=== PATIENT | female | born 2000 | race Caucasian/White ===

== ENCOUNTER 2022-07-28 11:27 | Emergency (ER) | payer OTHER, SELFPAY ==
--- NOTE | ~2022-07-28 | US_ITS ---
EXAMINATION: US pelvic complete w TV DATE: 07/28/2022 15:17 INDICATION: Ovarian cyst. Pelvic pain. TECHNIQUE: Multiple transabdominal and transvaginal sonographic images of the pelvis were obtained. COMPARISON: None. FINDINGS: TRANSABDOMINAL ULTRASOUND: The uterus measures 6.7 x 3.8 x 4.2 cm. There is physiologic free fluid in the pelvis. TRANSVAGINAL ULTRASOUND: The endometrial complex measures 1 mm in thickness. The right ovary measures 3.8 x 2.8 x 2.6 cm. The left ovary measures 4.1 x 3.1 x 4.1 cm. There is normal vascular flow in the ovaries. In the left adn exa, there is a 7.0 cm cyst with peripheral echogenic material without internal vascular flow. IMPRESSION: 1. 7.0 cm cyst with peripheral echogenic material without internal vascular flow in left adnexa. This finding may be a neoplasm or hemorrhagic cyst. Consider surgical evaluation or pelvis MRI without an d with contrast. Reviewed, dictated and finalized at location A. [employer] IMPRESSION: 1. 7.0 cm cyst with peripheral echogenic material without internal vascular kaitlin w in left adnexa. This finding may be a neoplasm or hemorrhagic cyst. Consider surgical evaluation or pelvis MRI without and with contrast.
[2022-07-28 12:19] VITALS: BP 144/118; PULSE 109; RESP 18; TEMP 36.8; O2SAT 100
[2022-07-28 12:42] LABS: Basophils Absolute Auto 0.1 K/mm3 (0.0-0.1); Basophils Percent Auto 0.4 % (0.2-1.2); Eosinophils Absolute Auto 0.2 K/mm3 (0-0.3); Eosinophils Percent Auto 1.4 % (0-4.4); Hemoglobin 12.8 g/dL (12.0-15.0); Immature Granulocyte Absolute 0.08 K/mm3 (0.00-0.031); Immature Granulocyte Percent A 0.6 % (0-0.5); Lymphocytes Absolute Auto 2.18 K/mm3 (0.9-3.2); Lymphocytes Percent Auto 17.1 % (18.3-44.2); Mean Corpuscular HGB Conc 31.2 g/dl (32-36); Mean Corpuscular Hemoglobin 26.4 pg (26-34); Mean Corpuscular Volume 84.5 fl (80-100); Mean Platelet Volume 8.9 fl (7.4-10.4); Monocytes Absolute Auto 0.7 K/mm3 (0.1-0.6); Monocytes Percent Auto 5.1 % (2.6-8.5); Neutrophils Absolute Auto 9.6 K/mm3 (1.3-6.7); Neutrophils Percent Auto 75.4 % (45.5-73.1); Platelet Count Result 319 k/mm3 (150-375); Red Blood Count 4.85 M/mm3 (4.2-5.4); Red Cell Distribution Width 13.8 % (11.5-14.5); White Blood Count 12.8 K/mm3 (4.5-10.0)
[2022-07-28 12:50] LABS: Alanine Aminotransferase 32 U/L (6-35); Albumin Level 4.1 g/dL (3.7-5.6); Alkaline Phosphatase 131 U/L (45-116); Anion Gap 4 mmol/L (8-16); Aspartate Amino Transferase 22 U/L (14-36); Bilirubin,Total 0.6 mg/dL (0.2-1.3); Blood Urea Nitrogen 16 mg/dL (8-21); Calcium 9.1 mg/dL (8.9-10.7); Carbon Dioxide 29 mmol/L (22-30); Chloride 101 mmol/L (98-107); Estimated CRCL calculation 161 ml/min; Estimated Glomerular Filt Rate > 60; Glucose 89 mg/dL (65-110); Lipase 57 U/L (23-300); Potassium 3.9 mmol/L (3.4-5.0); Sodium 134 mmol/L (134-143)
[2022-07-28 12:56] LABS: Appearance Urine Slightly Cloudy (Clear); Bilirubin Urine 1+ (Negative); Blood Urine Negative (Negative); Color Urine Yellow (Yellow); Glucose Urine UA Negative (Negative); Ketones Urine Trace mg/dL (Negative); Leukocyte Esterase Ur Trace LEU/UL (Negative); Nitrate Urine Negative (Negative); Protein Urine Negative (Negative); Specific Grav Ur >= 1.030 (1.001-1.035); Urobilinogen Urine 0.2 mg/dL (<2.0)
[2022-07-28 12:59] LABS: Add Urine Microscopic? YES; Bacteria Urine Trace /hpf; Mucus Urine Rare /lpf; Squamous Epithelial Cell Urine Many /hpf (Few); WBC Urine 16-20 /hpf
[2022-07-28 13:33] VITALS: BP 145/96; PULSE 92; RESP 18; O2SAT 98
--- NOTE | 2022-07-28 14:52 | ED.ABDPAIN ---
HPI - Abdominal Pain General Chief Complaint: Abdominal Pain Stated Complaint: ovarian cyst Time Seen by Provider: 07/28/22 13:50 Source: patient Mode of arrival: ambulatory Limitations: no limitations History of Present Illness HPI narrative: This is a 21-year-old female that presents to the emergency department for left-sided pelvic pain. Ongoing over the last 5 days. Reports the pain is sharp and constant. She has been taking anti-inflammatories for pain. Reports she was evaluated at [facility] emergency department and had an ultrasound of her pelvis. Reports having a 6 cm left ovarian cyst. She followed up with a provider today as her pain was worsening who prompted her to be seen in ER again. Reports some associated nausea and vomiting. Also reports dysuria. Denies fever, vaginal bleeding, or hematuria. Related Data Home Medications Medication Instructions Recorded Confirmed fluoxetine 40 mg capsule (Prozac) 40 mg PO DAILY 05/02/19 05/02/19 Allergies Allergy/AdvReac Type Severity Reaction Status Date / Time No Known Allergies Allergy Verified 07/28/22 13:30 Review of Systems Review of Systems: CONSTITUTIONAL: Denies fever GASTROINTESTINAL: Reports abdominal/pelvic pain, nausea, vomiting GENITOURINARY: Reports dysuria. Denies hematuria. SKIN: Denies rash All systems reviewed & are unremarkable except as noted in HPI and below PMFSH Past Medical History Medical History (Updated 07/28/22 @ 16:41 by Hillary Esquivel PA-C) No active medical problems Social History Social History (Updated 05/02/19 @ 18:43 by Yuliet Jolly, COMPENSATION SPECIALIST) Smoking status: Never smoker Alcohol intake: never Substance use: never Living arrangements: with family Gender identity (if verbalized by the patient): Female Exam Narrative: GENERAL: Well-appearing, well-nourished, and in no acute distress. HEAD: Normocephalic, atraumatic. EYES: EOMI. CHEST: Clear to auscultation. No respiratory distress. No wheezes rales or rhonchi HEART: Regular rate and rhythm. No murmur heard. Normal peripheral pulses. ABDOMEN: Soft, nondistended, normal active bowel sounds. Tender to palpation in the left lower abdomen, without guarding. No CVA tenderness EXTREMITIES: Normal range of motion. No edema. SKIN: Warm, dry, no rash. NEURO: No focal deficits. Alert and oriented x3. PSYCH: Normal mood and affect PELVIC: Normal external genitalia. Normal appearing cervix. No abnormal discharge noted Course Course Emergency Course: Patient updated on work-up and agrees with plan of care. Consultations Consultation #1: Spoke with Dr. Greenberg about patient and workup who will follow up with patient in clinic for further management Date: 07/28/22 Vital Signs Vital signs: Vital Signs Temperature 98.2 F 07/28/22 12:19 Pulse Rate 109 H 07/28/22 12:19 Respiratory Rate 18 07/28/22 12:19 Blood Pressure 144/118 H 07/28/22 12:19 Pulse Oximetry 100 07/28/22 12:19 Temperature 98.2 F 07/28/22 12:19 Pulse Rate 92 07/28/22 13:33 Respiratory Rate 18 07/28/22 13:33 Blood Pressure 145/96 H 07/28/22 13:33 Pulse Oximetry 98 07/28/22 13:33 MDM - Abdominal Pain MDM Narrative Medical decision making narrative: Patient presents to the emergency department for left-sided pelvic pain ongoing for the last 5 days. She is afebrile and nontoxic-appearing. Had been evaluated at outside ER and told she had a large ovarian cyst. Her pain worsened which prompted her to be seen again. Mildly tachycardic upon arrival, this normalized without intervention. CBC with leukocytosis to 12.8. Metabolic panel and lipase without concerning findings. UA with possible evidence of infection. Although does appear to be contaminated. Patient is reporting some dysuria, so we will start her on Macrobid. Trichomonas is negative. Chlamydia, gonorrhea, genital culture sent. Bedside test is negative. Pelvic ultrasound shows a 7 cm cyst with
[2022-07-28 17:00] VITALS: BP 140/80; RESP 18; O2SAT 100
== END 2022-07-28 17:02 | disposition home or self-care (01) ==
PROVIDERS: Emergency Medicine; Emergency Provider Physician Assistant
DX: N83.202 Unspecified ovarian cyst, left side (principal); N30.90 Cystitis, unspecified without hematuria
CPT/HCPCS: 36415; 76830; 76856; 80053; 81001; 81025; 83690; 85025; 87070; 87086; 87088; 87491; 87591; 87808; 96365; 99284; J0131